=== PATIENT | female | born 2000 | race Caucasian/White ===

== ENCOUNTER 2020-09-07 21:35 | Emergency (ER) | payer BC, SELFPAY ==
[2020-09-07 21:38] VITALS: BP 108/85; PULSE 93; RESP 18; TEMP 36.3; O2SAT 98
--- NOTE | 2020-09-07 22:20 | ED.ALLEREA ---
HPI - Allergic Reaction General Chief complaint: Allergic Reaction Stated complaint: Allergic reaction Time Seen by Provider: 09/07/20 22:05 Source: patient, family and RN notes reviewed Mode of arrival: ambulatory Limitations: no limitations History of Present Illness HPI narrative: Patient is 20 years old white female presents with itching skin rash all over her body started 3 weeks ago. Patient was seen by her family physician and was treated for possible staph infection, then was seen by urgent care and was treated for possible allergic reaction and finished a course of Medrol Dosepak without any improvement. Patient denies any new event in her life over the last few weeks. Patient also denies any history of allergic reaction to anything in the past. Patient's mother family have history of systemic lupus. Patient denies any fever, chills, nausea, vomiting, similar symptoms, history of COVID-19 infection, also denied anybody in her family or her friend having similar symptoms. Related Data Allergies Allergy/AdvReac Type Severity Reaction Status Date / Time No Known Allergies Allergy Verified 09/07/20 21:41 Review of Systems Review of Systems: Narrative: CONSTITUTIONAL: Denies fever, chills, or sweats. EYES: Denies visual changes, redness, or discharge. ENT: Denies rhinorrhea, congestion, sore throat, or otalgia. CARDIOVASCULAR: Denies chest pain, palpitations, or edema. RESPIRATORY: Denies cough or dyspnea. GASTROINTESTINAL: Denies abdominal pain, nausea, vomiting, or diarrhea. GENITOURINARY: Denies dysuria or hematuria. SKIN: Denies rash or itching. MUSCULOSKELETAL: Denies back pain, joint pain, or myalgia. NEUROLOGIC: Denies headache, numbness, or weakness. PSYCHIATRIC: Denies anxiety or depression. Exam Narrative: Exam Narrative: General appearance: Well-developed, well-nourished Skin: Widespread papular rash all over Head: Normocephalic, nontraumatic Eyes: Clear conjunctiva ENT: Oropharynx normal, ears normal, nose normal Neck: Supple, nontender Chest and respiratory: Airway patent, no respiratory distress, no accessory muscle use Heart: Regular rate/rhythm Abdomen: Soft, nontender, no organomegaly, quiet bowel sounds Vascular: Normal peripheral pulses, normal capillary refill. Musculoskeletal: Normal range of motion, nontender back Neurologic: Alert and oriented ?3, MAT WEAVER is normal as tested, no gross motor deficit Course Course Emergency Course: Stable, improving Vital Signs Vital signs: Vital Signs Temperature 36.3 C L 09/07/20 21:38 Pulse Rate 93 09/07/20 21:38 Respiratory Rate 18 09/07/20 21:38 Blood Pressure 108/85 09/07/20 21:38 Pulse Oximetry 98 09/07/20 21:38 Temperature 36.3 C L 09/07/20 21:38 Pulse Rate 93 09/07/20 21:38 Respiratory Rate 18 09/07/20 21:38 Blood Pressure 108/85 09/07/20 21:38 Pulse Oximetry 98 09/07/20 21:38 MDM - Allergic Reaction MDM Narrative Medical decision making narrative: Itching skin rash of unknown etiology. And plan to start the patient on prednisone, Zyrtec and just and to follow-up with a passenger brakeman for possible skin biopsy. Epinephrine, prednisone 60 mg orally, Zyrtec 10 mg and Vistaril 50 mg ordered. Differential Diagnosis Differential diagnosis: Likely allergic reaction, contact dermatitis and viral enanthem Critical Care Time Critical Care Time Critical Care Time: No Discharge Plan Discharge Clinical Impression: Acute dermatitis Patient Disposition: Home, Self-Care Condition: Stable Instructions: Dermatitis (ED) Additional Instructions: Return if symptoms are worsening , call your family physician for appointment, take Tylenol a
[2020-09-07] MEDS: EPINEPHrine HCL INJ 1 MG/ML AMPUL 0.3 MG IM (22:36)
[2020-09-07] MEDS: predniSONE 20 MG TABLET 60 MG PO (22:37)
[2020-09-07] MEDS: LORATADINE 10 MG TABLET (22:43)
[2020-09-07] MEDS: hydrOXYzine pamoate 25 MG CAPSULE 50 MG PO (22:43)
== END 2020-09-07 22:49 | disposition home or self-care (01) ==
PROVIDERS: Emergency Provider Emergency Medicine; PCP Nurse Practitioner Family
DX: L30.9 Dermatitis, unspecified (principal)
CPT/HCPCS: 96372; 99283; A9270; J0171; J7512

== ENCOUNTER 2024-03-24 07:41 | Outpatient (CLI) | payer BC, SELFPAY ==
--- NOTE | ~2024-03-24 | US_ITS ---
EXAMINATION: US pelvic complete w TV DATE: 03/24/2024 09:31 INDICATION: Abnormal uterine and vaginal bleeding. TECHNIQUE: Multiple transabdominal and transvaginal sonographic images of the pelvis were obtained. COMPARISON: None. FINDINGS: TRANSABDOMINAL ULTRASOUND: The uterus measures 7.5 x 3.6 x 5.2 cm. There is no free fluid in the pelvis. TRANSVAGINAL ULTRASOUND: The endometrial complex measures 15 mm in thickness. The right ovary measures 3.9 x 1.5 x 3.0 cm. The left ovary measures 3.9 x 2.5 x 3.0 cm. There is normal vascular flow in the ovaries. IMPRESSION: 1. Normal pelvis. Reviewed, dictated and finalized at location A. IMPRESSION: 1. Normal pelvis.
== END 2024-03-24 07:42 | disposition home or self-care (01) ==
PROVIDERS: PCP Nurse Practitioner Family; Visit Provider Nurse Practitioner Family
DX: N93.9 Abnormal uterine and vaginal bleeding, unspecified (principal)
CPT/HCPCS: 76830; 76856